=== PATIENT | male | born 1975 | race Caucasian/White ===

== ENCOUNTER 2018-03-06 14:02 | Emergency (ER) | payer OTHER ==
[2018-03-06 14:11] VITALS: BP 128/88
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
[2018-03-08 15:33] LABS: HIV AG/AB 4TH GEN NON-REACTIVE (NON-REACTIVE)
[2018-03-08 15:41] LABS: HEPATITIS B SURFACE AB QN IMM 9 mIU/mL (> OR = 10); HEPATITIS C ANTIBODY NON-REACTIVE (NON-REACTIVE)
== END 2018-03-06 14:37 | disposition home or self-care (01) ==
LOC: ED 14:02
DX: Z77.21 Contact with and (suspected) exposure to potentially hazardous body fluids (principal)
CPT/HCPCS: 36415; 86317; 86803; 87389; 99281; 99282

== ENCOUNTER 2018-03-30 08:57 | Emergency (ER) | payer OTHER ==
--- NOTE | 2018-03-30 11:42 | XRAY Report ---
EXAM: LEFT KNEE RADIOGRAPHY EXAM DATE: 03/30/2018 11:33 AM. CLINICAL HISTORY: Left knee pain. COMPARISON: None. TECHNIQUE: 3 views. FINDINGS: Bones: Normal. No fractures or bone lesions. Joints: Normal. No effusion. No subluxations. Soft Tissues: Normal. No soft tissue swelling. IMPRESSION: Normal knee radiography. [facility] Referring Provider Line: [phone] SITE ID: [id number]
--- NOTE | 2018-03-30 11:42 | XRAY Preliminary Report ---
Exam: XR KNEE 4 VIEW LT IMPRESSION: Normal knee radiography. [facility] SITE ID: [id number]
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
[2018-03-30 11:55] VITALS: BP 156/93
== END 2018-03-30 11:59 | disposition home or self-care (01) ==
LOC: ED 08:57
DX: S80.02XA Contusion of left knee, initial encounter (principal); W23.0XXA Caught, crushed, jammed, or pinched between moving objects, initial encounter; Y99.0 Civilian activity done for income or pay; I11.0 Hypertensive heart disease with heart failure; I50.9 Heart failure, unspecified; E11.9 Type 2 diabetes mellitus without complications
CPT/HCPCS: 1040M; 73564; 99283

== ENCOUNTER 2020-06-27 06:22 | Emergency (ER) | payer OTHER ==
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
[2020-06-27] MEDS: MUPIROCIN 2% OINT 1 GM TOP STA (06:49)
[2020-06-27 07:08] LABS: HGB - HEMOGLOBIN 17.8 g/dL (14.0-18.0); MEAN CORPUSCULAR HEMOGLOBIN 31.7 pg (27.0-31.0); MEAN CORPUSCULAR HGB CONC 34.7 g/dL (32.0-36.0); MEAN CORPUSCULAR VOLUME 91.3 fL (80.0-94.0); MEAN PLATELET VOLUME 9.8 fL (7.4-11.4); RED BLOOD COUNT 5.62 10^6/uL (4.70-6.10); WHITE BLOOD COUNT 12.9 x10^3/uL (4.8-10.8)
[2020-06-27 07:16] LABS: ALBUMIN 4.2 g/dL (3.2-5.5); ALBUMIN/GLOBULIN RATIO 1.4 (1.0-2.2); BILIRUBIN,TOTAL 1.2 mg/dL (0.2-1.0); CALCIUM 9.5 mg/dL (8.5-10.3); CREATININE 1.7 mg/dL (0.6-1.2); TOTAL PROTEIN 7.2 g/dL (6.7-8.2)
[2020-06-27 07:17] VITALS: BP 198/124
[2020-06-28 12:52] LABS: HEPATITIS C ANTIBODY NON-REACTIVE (NON-REACTIVE)
[2020-06-28 13:21] LABS: HIV AG/AB 4TH GEN NON-REACTIVE (NON-REACTIVE)
== END 2020-06-27 07:17 | disposition home or self-care (01) ==
LOC: ED 06:22
DX: S41.152A Open bite of left upper arm, initial encounter (principal); Y04.1XXA Assault by human bite, initial encounter; Y35.811A Legal intervention involving manhandling, law enforcement official injured, initial encounter; Y99.0 Civilian activity done for income or pay; I11.0 Hypertensive heart disease with heart failure; I50.9 Heart failure, unspecified; E11.9 Type 2 diabetes mellitus without complications; Z79.84 Long term (current) use of oral hypoglycemic drugs
CPT/HCPCS: 1040M; 36415; 80053; 85027; 86317; 86803; 87389; 99283; A9270